=== PATIENT | female | born 1965 | race Hispanic/Latino ===

== ENCOUNTER 2021-04-03 01:28 | Observation (INO) | payer OTHER ==
[2021-04-03] MEDS ORDERED: ASPIRIN 325 MG TAB PO ONE (01:37)
[2021-04-03 02:06] LABS: Basophils # (Auto) 0.1 K/mm3 (0.0-0.1); Basophils % (Auto) 0.4 % (0.0-1.8); Eosinophils # (Auto) 0.3 K/mm3 (0.0-0.4); Eosinophils % (Auto) 2.3 % (0.0-4.3); Hematocrit 37.7 % (30.3-42.9); Hemoglobin 12.6 gm/dl (10.1-14.3); Lymphocytes # (Auto) 2.6 K/mm3 (1.2-5.4); Lymphocytes % (Auto) 20.5 % (13.4-35.0); Mean Corpuscular HGB Conc 34 % (30-34); Mean Corpuscular Volume 80 fl (79-97); Monocytes # (Auto) 0.5 K/mm3 (0.0-0.8); Monocytes % (Auto) 4.3 % (0.0-7.3); Platelet Count 363 K/mm3 (140-440); Red Blood Count 4.71 M/mm3 (3.65-5.03); Red Cell Distribution Width 14.3 % (13.2-15.2)
--- NOTE | 2021-04-03 02:13 | Emergency Department Report ---
ED Chest Pain HPI - General Chief Complaint: Chest Pain Stated Complaint: CHEST PAIN Time Seen by Provider: 04/03/21 01:45 Source: patient, EMS Mode of arrival: Stretcher Limitations: Other - History of Present Illness Initial Comments: 55-year-old female with no known past medical history presents complaining of acute onset of right-sided chest pain and shortness of breath. The patient states that she was sitting watching TV approximately 1.5 hours prior to arrival when she began to have pain in the right side of her chest which she describes as a tightness. The pain is 6 out of 10 in severity. She says her pain gets significantly worse during breaths. She feels short of breath and at the time the symptoms started was very diaphoretic. She reports after arrival to the emergency department her symptoms have somewhat improved but have not gone away. She has never had this before. The pain is not radiating to her arms or jaw. She denies any associated vision change, headache, neck pain, back pain, abdominal pain, nausea/vomiting, leg pain, leg swelling, or any other complaints. She denies any recent surgery, travel, or prolonged immobilization. - Related Data Allergies Allergy/AdvReac Type Severity Reaction Status Date / Time No Known Allergies Allergy Verified 04/03/21 01:46 Heart Score - HEART Score History: Moderately suspicious EKG: Normal Age: 45-65 Risk factors: No known risk factors Troponin: < normal limit HEART Score: 2 - EKG Read Time Time EKG Completed: 01:46 EKG Read Time: 01:50 ED Review of Systems ROS: Stated complaint: CHEST PAIN Other details as noted in HPI Constitutional: denies: chills, fever Eyes: denies: eye pain, vision change ENT: denies: throat pain, congestion Respiratory: shortness of breath. denies: cough Cardiovascular: chest pain. denies: palpitations, edema, syncope Gastrointestinal: denies: abdominal pain, nausea, vomiting Genitourinary: denies: dysuria, frequency Musculoskeletal: denies: back pain, joint swelling Skin: denies: rash Neurological: denies: headache, weakness, numbness ED Past Medical Hx - Past Medical History Previous Medical History?: No - Surgical History Past Surgical History?: No - Social History Smoking Status: Current Every Day Smoker Substance Use Type: None ED Physical Exam - General Limitations: Other - Other Other exam information: GENERAL: Well developed and well nourished. No acute distress HEENT: Normocephalic. No obvious signs of trauma. Dry mucous membranes EYES: Extraocular movements are intact. Pupils are equal round and reactive to light bilaterally NECK: Supple. Trachea is midline. LUNGS: Nonlabored breathing. Equal chest rise bilaterally. Clear to auscultation bilaterally. HEART/CARDIOVASCULAR: Regular rate and rhythm. No murmurs or rubs. VASCULAR: Cap refill < 2 seconds ABDOMEN: Abdomen is soft and nondistended. There is no significant tenderness, guarding or rebound. SKIN: Skin is warm and dry NEURO: Patient is awake, alert, and oriented. manager intelligence II-XII grossly intact. No focal deficits. Normal speech. MUSCULOSKELETAL: No obvious deformities. No significant tenderness. Normal ROM throughout. . ED Course Vital Signs 04/03/21 04/03/21 04/03/21 01:44 01:50 03:13 Temperature 97.9 F Pulse Rate 105 H 110 H 104 H Respiratory 16 Rate Blood Pressure 125/83 Blood Pressure 152/86 [Left] O2 Sat by Pulse 99 Oximetry 04/03/21 04/03/21 03:27 03:36 Temperature Pulse Rate 104 H 101 H Respiratory 19 Rate Blood Pressure 134/65 136/73 Blood Pressure 136/76 [Left] O2 Sat by Pulse 99 Oximetry GANESH score - Ganesh Score Age > 65: (0) No Aspirin use within the Past 7 Days: (0) No 3 or more CAD Risk Factors: (0) No 2 or more Angina events in past 24 hrs: (0) No Known CAD with more than 50% Stenosis: (0) No Elevated Cardiac Markers: (0) No ST Deviation Greater than 0.5mm: (0) No GANESH Score: 0 ED Medical Decision Making - Lab Data Result diagrams: 04/03/21 06:04 04/03/21 01:53 Lab Results 04/03/21 04/03/21 04/03/21 Range/Units 01:53 01:53 01:53 WBC 12.7 H (4.5-11.0) K/mm3 RBC 4.71 (3.65-5.03) M/mm3 Hgb 12.6 (10.1-14.3) gm/dl Hct 37.7 (30.3-42.9) % MCV 80 (79-97) fl MCH 27 L (28-32) pg MCHC 34 (30-34) % RDW 14.3 (13.2-15.2) % Plt Count 363 (140-440) K/mm3 Lymph % (Auto) 20.5 (13.4-35.0) % Kendall % (Auto) 4.3 (0.0-7.3) % Eos % (Auto) 2.3 (0.0-4.3) % Baso % (Auto) 0.4 (0.0-1.8) % Lymph # (Auto) 2.6 (1.2-5.4) K/mm3 Kendall # (Auto) 0.5 (0.0-0.8) K/mm3 Eos # (Auto) 0.3 (0.0-0.4) K/mm3 Baso # (Auto) 0.1 (0.0-0.1) K/mm3 Seg Neutrophils % 72.5 H (40.0-70.0) % Seg Neutrophils # 9.2 H (1.8-7.7) K/mm3 D-Dimer 135.00 (0-234) ng/mlDDU Sodium 141 (137-145) mmol/L Potassium 3.6 (3.6-5.0) mmol/L Chloride 102.6 (98-107) mmol/L Carbon Dioxide 29 (22-30) mmol/L Anion Gap 13 mmol/L BUN 17 (7-17) mg/dL Creatinine 0.9 (0.6-1.2) mg/dL Estimated GFR > 60 ml/min BUN/Creatinine Ratio 19 % Glucose 112 H (65-100) mg/dL Calcium 8.9 (8.4-10.2) mg/dL Total Bilirubin < 0.20 (0.1-1.2) mg/dL AST 17 (5-40) units/L ALT 17 (7-56) units/L Alkaline Phosphatase 125 (35-129) units/L Troponin T < 0.010 (0.00-0.029) ng/mL Total Protein 7.0 (6.3-8.2) g/dL Albumin 4.5 (3.9-5) g/dL Albumin/Globulin Ratio 1.8 % HCG, Qual (Negative) 04/03/21 Range/Units 01:53 WBC (4.5-11.0) K/mm3 RBC (3.65-5.03) M/mm3 Hgb (10.1-14.3) gm/dl Hct (30.3-42.9) % MCV (79-97) fl MCH (28-32) pg MCHC (30-34) % RDW (13.2-15.2) % Plt Count (140-440) K/mm3 Lymph % (Auto) (13.4-35.0) % Kendall % (Auto) (0.0-7.3) % Eos % (Auto) (0.0-4.3) % Baso % (Auto) (0.0-1.8) % Lymph # (Auto) (1.2-5.4) K/mm3 Kendall # (Auto) (0.0-0.8) K/mm3 Eos # (Auto) (0.0-0.4) K/mm3 Baso # (Auto) (0.0-0.1) K/mm3 Seg Neutrophils % (40.0-70.0) % Seg Neutrophils # (1.8-7.7) K/mm3 D-Dimer (0-234) ng/mlDDU Sodium (137-145) mmol/L Potassium (3.6-5.0) mmol/L Chloride (98-107) mmol/L Carbon Dioxide (22-30) mmol/L Anion Gap mmol/L BUN (7-17) mg/dL Creatinine (0.6-1.2) mg/dL Estimated GFR ml/min BUN/Creatinine Ratio % Glucose (65-100) mg/dL Calcium (8.4-10.2) mg/dL Total Bilirubin (0.1-1.2) mg/dL AST (5-40) units/L ALT (7-56) units/L Alkaline Phosphatase (35-129) units/L Troponin T (0.00-0.029) ng/mL Total Protein (6.3-8.2) g/dL Albumin (3.9-5) g/dL Albumin/Globulin Ratio % HCG, Qual Negative (Negative) - EKG Data -: EKG Interpreted by Mt - EKG Data 04/03/21 03:13 Sinus tachycardia. Normal axis. Normal intervals. No ectopy. No significant ST segment or T wave abnormalities. - Radiology Data CHEST 1 VIEW, 04/03/2021 1:37 AM CLINICAL INFORMATION/INDICATION: Chest pain COMPARISON: None. FINDINGS: SUPPORT DEVICES: None. HEART: The cardiac silhouette is normal in size. LUNGS/PLEURA: The lungs are clear of focal airspace disease or significant pleural effusion. ADDITIONAL FINDINGS: No additional acute findings. IMPRESSION: 1. No evidence of acute cardiopulmonary process. Signer Name: Juliann Nolasco MD Signed: 04/03/2021 1:45 AM Workstation Name: [id number] - Medical Decision Making 55-year-old female with no known past medical history presents complaining of new onset of pleuritic chest pain at rest. It started 1.5 hours prior to arrival while she was watching TV. She states that she feels short of breath and that deep breaths make the pain much worse. She has never had this before. Initial assessment, she is afebrile and with normal vitals with the exception of elevated blood pressure and heart rate in the 110s. Denies any recent travel , surgery, or prolonged immobilization. On physical exam she is noted to be tachycardic but with regular rhythm. Lungs are clear to auscultation. There is no significant lower extremity swelling. Her Wells PE score is 1.5, corresponding to low risk. Therefore we will order full set of labs including troponin and D-dimer as well as chest x-ray. We will give full-strength aspirin and reassess. Labs have resulted and reveal white blood cell count of 12.7. There is no significant anemia. There is no significant electrolyte abnormality. Kidney function is normal. Troponin is negative. D-dimer is negative. Chest x-ray shows no acute abnormalities. On repeat assessment at 3 AM, the patient reports that her chest pain/shortness of breath are unchanged. I discussed the results of the labs and imaging with the patient and explained the need for trending of cardiac enzymes given that this may represent new onset angina. Will give sublingual nitro glycerin and admit to the hospitalist for further work-up/management. The patient expressed understanding and agreement with this plan of care. Critical care attestation.: If time is entered above; I have spent that time in minutes in the direct care of this critically ill patient, excluding procedure time. ED Disposition Clinical Impression: Unstable angina Disposition: OP ADMIT IP TO THIS HOSP Is pt being admited?: Yes Condition: Stable
[2021-04-03] MEDS ORDERED: SODIUM CHLORIDE 0.9% 1000 ML 1,000 ML IV ONE (02:26)
[2021-04-03 02:29] LABS: Alanine Aminotransferase 17 units/L (7-56); Albumin 4.5 g/dL (3.9-5); BUN/Creatinine Ratio 19; Blood Urea Nitrogen 17 mg/dL (7-17); Calcium 8.9 mg/dL (8.4-10.2); Hemolysis Index 3
--- NOTE | 2021-04-03 02:50 | XRay Report ---
CHEST 1 VIEW, 04/03/2021 1:37 AM CLINICAL INFORMATION/INDICATION: Chest pain COMPARISON: None. FINDINGS: SUPPORT DEVICES: None. HEART: The cardiac silhouette is normal in size. LUNGS/PLEURA: The lungs are clear of focal airspace disease or significant pleural effusion. ADDITIONAL FINDINGS: No additional acute findings. IMPRESSION: 1. No evidence of acute cardiopulmonary process. Signer Name: Juliann Nolasco MD Signed: 04/03/2021 2:45 AM Workstation Name: [id number]
[2021-04-03] MEDS: NITROGLYCERIN 0.4 MG TAB SUBL SL PRN ×3 (03:13→03:36)
[2021-04-03] MEDS ORDERED: ACETAMINOPHEN 325 MG TAB PO PRN ×3 (03:52→04:01)
[2021-04-03] MEDS ORDERED: MORPHINE 2 MG/1 ML INJ IV PRN ×2 (03:53→04:01)
[2021-04-03] MEDS ORDERED: ALBUTEROL 2.5 MG/3 ML NEBU IH PRN (04:01)
[2021-04-03] MEDS ORDERED: traMADol 50 MG TAB PO PRN (04:01)
[2021-04-03] MEDS ORDERED: ONDANSETRON 4 MG/2 ML INJ IV PRN (04:01)
[2021-04-03] MEDS ORDERED: NITROGLYCERIN 0.4 MG TAB SUBL SL PRN (04:01)
[2021-04-03] MEDS ORDERED: hydrALAZINE 20 MG/1 ML INJ IV PRN (04:04)
--- NOTE | 2021-04-03 04:08 | History and Physical Report ---
History of Present Illness Date of examination: 04/03/21 Date of admission: 04/03/21 03:08 Chief complaint: Chest pain History of present illness: 55-year-old female with no known past medical history presents complaining of acute onset of right-sided chest pain and shortness of breath for the last couple of hours. The patient was sitting watching TV approximately 1.5 hours prior to arrival when she began to have pain in the right side of her chest which she describes as a tightness which is 6/10, does not radiate to her arms or jaw she says her pain gets significantly worse during breaths. She feels short of breath and at the time the symptoms started was very diaphoretic. She reports after arrival to the emergency department her symptoms have somewhat improved but have not gone away. She has never had this before. She denies any associated vision change, headache, neck pain, back pain, abdominal pain, nausea/vomiting, leg pain, leg swelling, or any other complaints. In the emergency room initial cardiac enzyme is negative troponin is 0.010 Medications and Allergies Allergies Allergy/AdvReac Type Severity Reaction Status Date / Time No Known Allergies Allergy Verified 04/03/21 01:46 Active Meds: Active Medications Acetaminophen (Acetaminophen 325 Mg Tab) 650 mg PO Q6H PRN PRN Reason: Pain, Mild (1-3) Last Admin: 04/03/21 03:56 Dose: 650 mg Documented by: Morphine Sulfate (Morphine 2 Mg/1 Ml Inj) 2 mg IV Q4H PRN PRN Reason: Pain, Moderate (4-6) Nitroglycerin (Nitroglycerin 0.4 Mg Tab Subl) 0.4 mg SL .Q5MIN PRN PRN Reason: Chest Pain Last Admin: 04/03/21 03:36 Dose: 0.4 mg Documented by: Review of Systems Cardiovascular: chest pain, shortness of breath, dyspnea on exertion Respiratory: shortness of breath, dyspnea on exertion Exam - Constitutional Vitals: Temp Pulse Resp BP Pulse Ox 97.9 F 101 H 19 136/76 99 04/03/21 01:44 04/03/21 03:36 04/03/21 03:36 04/03/21 03:36 04/03/21 03:36 General appearance: Present: no acute distress, well-nourished - EENT Eyes: Present: PERRL ENT: hearing intact, clear oral mucosa - Neck Neck: Present: supple, normal ROM - Respiratory Respiratory effort: normal Respiratory: bilateral: diminished - Cardiovascular Heart Sounds: Present: S1 & S2. Absent: rub, click - Extremities Extremities: pulses symmetrical, No edema Peripheral Pulses: within normal limits - Abdominal General gastrointestinal: Present: soft, non-tender, non-distended, normal bowel sounds Female genitourinary: Present: normal - Integumentary Integumentary: Present: clear, warm, dry - Musculoskeletal Musculoskeletal: gait normal, strength equal bilaterally - Psychiatric Psychiatric: appropriate mood/affect, intact judgment & insight - Neurologic Neurologic: CNII-XII intact, moves all extremities HEART Score - HEART Score EKG: Normal Age: 45-65 Risk factors: No known risk factors Troponin: Troponin T < 0.010 ng/mL (0.00-0.029) 04/03/21 01:53 Troponin: < normal limit Results - Labs CBC & Chem 7: 04/03/21 01:53 04/03/21 01:53 Labs: Laboratory Last Values WBC 12.7 K/mm3 (4.5-11.0) H 04/03/21 01:53 RBC 4.71 M/mm3 (3.65-5.03) 04/03/21 01:53 Hgb 12.6 gm/dl (10.1-14.3) 04/03/21 01:53 Hct 37.7 % (30.3-42.9) 04/03/21 01:53 MCV 80 fl (79-97) 04/03/21 01:53 MCH 27 pg (28-32) L 04/03/21 01:53 MCHC 34 % (30-34) 04/03/21 01:53 RDW 14.3 % (13.2-15.2) 04/03/21 01:53 Plt Count 363 K/mm3 (140-440) 04/03/21 01:53 Lymph % (Auto) 20.5 % (13.4-35.0) 04/03/21 01:53 Edmunds % (Auto) 4.3 % (0.0-7.3) 04/03/21 01:53 Eos % (Auto) 2.3 % (0.0-4.3) 04/03/21 01:53 Baso % (Auto) 0.4 % (0.0-1.8) 04/03/21 01:53 Lymph # (Auto) 2.6 K/mm3 (1.2-5.4) 04/03/21 01:53 Edmunds # (Auto) 0.5 K/mm3 (0.0-0.8) 04/03/21 01:53 Eos # (Auto) 0.3 K/mm3 (0.0-0.4) 04/03/21 01:53 Baso # (Auto) 0.1 K/mm3 (0.0-0.1) 04/03/21 01:53 Seg Neutrophils % 72.5 % (40.0-70.0) H 04/03/21 01:53 Seg Neutrophils # 9.2 K/mm3 (1.8-7.7) H 04/03/21 01:53 D-Dimer 135.00 ng/mlDDU (0-234) 04/03/21 01:53 Sodium 141 mmol/L (137-145) 04/03/21 01:53 Potassium 3.6 mmol/L (3.6-5.0) 04/03/21 01:53 Chloride 102.6 mmol/L (98-107) 04/03/21 01:53 Carbon Dioxide 29 mmol/L (22-30) 04/03/21 01:53 Anion Gap 13 mmol/L 04/03/21 01:53 BUN 17 mg/dL (7-17) 04/03/21 01:53 Creatinine 0.9 mg/dL (0.6-1.2) 04/03/21 01:53 Estimated GFR > 60 ml/min 04/03/21 01:53 BUN/Creatinine Ratio 19 % 04/03/21 01:53 Glucose 112 mg/dL (65-100) H 04/03/21 01:53 Calcium 8.9 mg/dL (8.4-10.2) 04/03/21 01:53 Total Bilirubin < 0.20 mg/dL (0.1-1.2) 04/03/21 01:53 AST 17 units/L (5-40) 04/03/21 01:53 ALT 17 units/L (7-56) 04/03/21 01:53 Alkaline Phosphatase 125 units/L (35-129) 04/03/21 01:53 Troponin T < 0.010 ng/mL (0.00-0.029) 04/03/21 01:53 Total Protein 7.0 g/dL (6.3-8.2) 04/03/21 01:53 Albumin 4.5 g/dL (3.9-5) 04/03/21 01:53 Albumin/Globulin Ratio 1.8 % 04/03/21 01:53 HCG, Qual Negative (Negative) 04/03/21 01:53 - Imaging and Cardiology Chest x-ray: report reviewed Assessment and Plan VTE prophylaxis?: Chemical Plan of care discussed with patient/family: Yes - Patient Problems (1) Acute coronary syndrome Current Visit: Yes Status: Acute Plan to address problem: Admit the patient to the cardiac telemetry. Aspirin 325 mg p.o. daily. Lipitor 40 mg p.o. daily. Nitroglycerin as needed we will do the serial cardiac enzymes we also do a Lexiscan. Consult cardiology in the morning if needed. Heparin 5000 units subcu every 8 hours (2) Shortness of breath Current Visit: Yes Status: Acute Plan to address problem: Oxygen by nasal cannula 3 L/min. DuoNeb by nebulizer every 4 hours as needed. Spencer troll 2.5 mg by nebulizer every 4 hours as needed. We will monitor the patient closely (3) DVT prophylaxis Current Visit: Yes Status: Acute Plan to address problem: Heparin 5000 units subcu every 8 hours for DVT prophylaxis. Pepcid 20 mg p.o. twice daily for GI prophylaxis. Patient is a full code
[2021-04-03] MEDS ORDERED: D5W/0.45% NACL 1,000 ML IV SCH (05:00)
[2021-04-03] MEDS ORDERED: HEPARIN 5,000 UNIT/1 ML VIAL SUB-Q SCH (06:00)
[2021-04-03 06:40] LABS: Basophils # (Auto) 0.1 K/mm3 (0.0-0.1); Basophils % (Auto) 0.4 % (0.0-1.8); Eosinophils # (Auto) 0.2 K/mm3 (0.0-0.4); Eosinophils % (Auto) 2.1 % (0.0-4.3); Hematocrit 34.8 % (30.3-42.9); Hemoglobin 11.8 gm/dl (10.1-14.3); Lymphocytes # (Auto) 2.7 K/mm3 (1.2-5.4); Mean Corpuscular HGB Conc 34 % (30-34); Mean Corpuscular Volume 82 fl (79-97); Monocytes # (Auto) 0.6 K/mm3 (0.0-0.8); Monocytes % (Auto) 4.8 % (0.0-7.3); Platelet Count 302 K/mm3 (140-440); Red Blood Count 4.22 M/mm3 (3.65-5.03); Red Cell Distribution Width 14.4 % (13.2-15.2)
[2021-04-03 07:37] LABS: Blood Urea Nitrogen 17 mg/dL (7-17); Calcium 8.7 mg/dL (8.4-10.2); Hemolysis Index 20
[2021-04-03 07:38] LABS: BUN/Creatinine Ratio 24
[2021-04-03 07:42] LABS: Chol/HDL Ratio 4.12 %
[2021-04-03] MEDS ORDERED: REGADENOSON 0.4 MG/5 ML INJ IV ONE ×2 (08:41→08:45)
[2021-04-03 09:58] VITALS: BP 125/76
[2021-04-03] MEDS ORDERED: FAMOTIDINE 20 MG TAB PO SCH (10:00)
--- NOTE | 2021-04-03 13:06 | Discharge Summary ---
Providers - Providers Date of Admission: 04/03/21 03:08 Date of discharge: 04/03/21 Attending physician: FELIBERTO SALGADO 04/03/21 Consult to Cardiac Rehabilitation [CONS] Routine Reason For Exam: Phase I 04/03/21 10:19 Consult to Physician [CONS] Routine Comment: Consulting Provider: NIRAV LOVE Physician Instructions: Reason For Exam: chest pain Primary care physician: [employer] Hospitalization Condition: Fair Hospital course: 55-year-old female with no known past medical history presents complaining of acute onset of right-sided chest pain and shortness of breath for the last couple of hours. The patient was sitting watching TV approximately 1.5 hours prior to arrival when she began to have pain in the right side of her chest which she describes as a tightness which is 6/10, does not radiate to her arms or jaw she says her pain gets significantly worse during breaths. She feels short of breath and at the time the symptoms started was very diaphoretic. She reports after arrival to the emergency department her symptoms have somewhat improved but have not gone away. She has never had this before. She denies any associated vision change, headache, neck pain, back pain, abdominal pain, nausea/vomiting, leg pain, leg swelling, or any other complaints. She was admitted, evaluated by Cardiology. Stress test was negative for ischemia. Patient therefore discharged home. Chest pain due to GERD. Disposition: TO HOME OR SELFCARE Final Discharge Diagnosis (Prints w/discharge instructions): 1.Chest pain due to GERD. 2.GERD - Discharge Diagnoses (1) Chest pain Status: Resolved Comment: due to GERD (2) GERD (gastroesophageal reflux disease) Status: Acute Core Measure Documentation - Palliative Care Palliative Care/ Comfort Measures: Not Applicable - Core Measures Any of the following diagnoses?: none Exam - Constitutional Vitals: Temp Pulse Resp BP Pulse Ox 98.0 F 70 19 125/76 99 04/03/21 06:03 04/03/21 06:03 04/03/21 06:03 04/03/21 09:25 04/03/21 06:03 Plan Activity: advance as tolerated Diet: low fat, low cholesterol, low salt Special Instructions: other (Follow up with Dr Alba, [facility] within 1 to 2 weeks of discharge. #[phone]) Plan of Treatment: 1.Follow up with PCP in 1 week. 2.Follow up with Dr. Alba, Cardiology in 1-2 weeks #[phone] 3.Continue Omeprazole from home Follow up with: PRIMARY CAREMD [Primary Care Provider] - 3-5 Days
--- NOTE | 2021-04-03 13:14 | Consultation ---
History of Present Illness Consult date: 04/03/21 Requesting physician: FELIBERTO SALGADO Consult reason: chest pain History of present illness: 80 this patient is a 55-year-old female with no significant medical history. She is previously known to our practice. She is not followed by cardiology, and is followed by Dr. Bella PCP. Patient presents to [facility] via private vehicle after episode of chest pain amd shortness of breath lasting approximately 1 to 2 hours. Patient describes chest pain as 6 out of 10, sharp and right-sided, nonradiating and worse with deep inspiration. Not exacerbated by exertion and not relieved with rest. Chest pain resolved spontaneously in the emergency room. Initial twelve-lead ECG showed sinus tach [address] segment elevation. D-dimer was normal. Troponins are negative x3. Echocardiogram shows normal EF with no cardiomyopathy. Lexiscan stress test this a.m. was negative for reversible ischemia. At time of interview patient is chest pain-free without any complaints. She currently denies any weakness, dizziness, shortness of breath, chest pain, N/V/D, abdominal pain, recent illness or known exposures. She does use tobacco reporting half pack per day x20 years, no other drugs or alcohol. She reports normal unimpaired ADLs. She takes no daily medications save for intermittent multivitamins. Past History Past Medical History: other (Unknown autoimmune disease, see HPI) Medications and Allergies Allergies Allergy/AdvReac Type Severity Reaction Status Date / Time No Known Allergies Allergy Verified 04/03/21 01:46 Home Medications Medication Instructions Recorded Confirmed Last Taken Type Famotidine [Pepcid] 20 mg PO BID #60 tablet 04/03/21 Unknown Rx Active Meds: Active Medications Acetaminophen (Acetaminophen 325 Mg Tab) 650 mg PO Q4H PRN PRN Reason: Pain MILD(1-3)/Fever >100.5/DOS SANTOS Last Admin: 04/03/21 05:01 Dose: 650 mg Documented by: Albuterol (Albuterol 2.5 Mg/3 Ml Nebu) 2.5 mg IH Q4HRT PRN PRN Reason: Shortness Of Breath Aspirin (Aspirin Ec 325 Mg Tab) 325 mg PO QDAY NIKO Atorvastatin Calcium (Atorvastatin 40 Mg Tab) 40 mg PO QHS NIKO Famotidine (Famotidine 20 Mg Tab) 20 mg PO BID NIKO Heparin Sodium (Porcine) (Heparin 5,000 Unit/1 Ml Vial) 5,000 unit SUB-Q Q8HR [facility] Last Admin: 04/03/21 05:00 Dose: 5,000 unit Documented by: Hydralazine HCl (Hydralazine 20 Mg/1 Ml Inj) 10 mg IV Q6H PRN PRN Reason: SBP >/=160; DBP >/100 Dextrose/Sodium Chloride (D5/0.45ns) 1,000 mls @ 100 mls/hr IV DIRECT [facility] Last Admin: 04/03/21 05:00 Dose: 100 mls/hr Documented by: Morphine Sulfate (Morphine 2 Mg/1 Ml Inj) 2 mg IV Q4H PRN PRN Reason: Pain, Moderate (4-6) Nitroglycerin (Nitroglycerin 0.4 Mg Tab Subl) 0.4 mg SL Q5M PRN PRN Reason: Chest Pain Ondansetron HCl (Ondansetron 4 Mg/2 Ml Inj) 4 mg IV Q8H PRN PRN Reason: Nausea And Vomiting Sodium Chloride (Sodium Chloride 0.9% 10 Ml Flush Syringe) 10 ml IV BID NIKO Sodium Chloride (Sodium Chloride 0.9% 10 Ml Flush Syringe) 10 ml IV PRN PRN PRN Reason: LINE FLUSH Tramadol HCl (Tramadol 50 Mg Tab) 50 mg PO Q6H PRN PRN Reason: Pain, Moderate (4-6) Review of Systems Constitutional: no weight loss, no weight gain, no fever, no chills, no sweats, no night sweats, no fatigue, no weakness, no malaise, no lethargy Ears, nose, mouth and throat: no ear pain, no ear discharge, no nose pain, no nasal congestion, no nasal discharge Cardiovascular: chest pain, shortness of breath, no orthopnea, no palpitations, no rapid/irregular heart beat, no edema, no syncope, no lightheadedness, no dyspnea on exertion, no paroxysmal nocturnal dyspnea, no claudication, no phlebitis, no high blood pressure, no leg edema, no decreased exercise tolerance Respiratory: shortness of breath, pain on inspiration, no cough, no hemoptysis, no dyspnea on exertion, no congestion, no wheezing, no pleurisy, no pain, no home oxygen Gastrointestinal: no abdominal pain, no nausea, no vomiting, no diarrhea Musculoskeletal: no neck stiffness, no neck pain, no shooting arm pain, no arm numbness/tingling, no low back pain, no shooting leg pain Integumentary: no rash, no pruritis, no redness, no sores, no wounds Neurological: no head injury, no paralysis, no weakness, no parathesias, no numbness, no tingling, no seizures, no syncope Psychiatric: no anxiety Endocrine: no cold intolerance, no heat intolerance Hematologic/Lymphatic: no easy bruising, no easy bleeding Allergic/Immunologic: no urticaria Physical Examination Last Vital Signs Temp 98.0 F 04/03/21 06:03 Pulse 70 04/03/21 06:03 Resp 19 04/03/21 06:03 BP 125/76 04/03/21 09:25 Pulse Ox 99 04/03/21 06:03 General appearance: no acute distress HEENT: Positive: PERRL, Normocephaly, Mucus Membranes Moist Neck: Positive: neck supple, trachea midline Cardiac: Positive: Reg Rate and Rhythm, S1/S2 Lungs: Positive: Normal Exam, Normal Breath Sounds Neuro: Positive: Grossly Intact Abdomen: Positive: Unremarkable, Soft Skin: Negative: Rash, Wound Musculoskeletal: No Pain Extremities: Absent: upper extr. pulses, lower extr. pulses, edema Results 04/03/21 06:04 04/03/21 06:04 Cardiac Enzymes 04/03/21 Range/Units 01:53 AST 17 (5-40) units/L Lipids 04/03/21 Range/Units 06:04 Triglycerides 147 (2-149) mg/dL Cholesterol 169 (50-199) mg/dL HDL Cholesterol 41 (40-59) mg/dL Cholesterol/HDL Ratio 4.12 % CBC 04/03/21 04/03/21 Range/Units 01:53 06:04 WBC 12.7 H 11.7 H (4.5-11.0) K/mm3 RBC 4.71 4.22 (3.65-5.03) M/mm3 Hgb 12.6 11.8 (10.1-14.3) gm/dl Hct 37.7 34.8 (30.3-42.9) % Plt Count 363 302 (140-440) K/mm3 Lymph # (Auto) 2.6 2.7 (1.2-5.4) K/mm3 Mccreary # (Auto) 0.5 0.6 (0.0-0.8) K/mm3 Eos # (Auto) 0.3 0.2 (0.0-0.4) K/mm3 Baso # (Auto) 0.1 0.1 (0.0-0.1) K/mm3 Comprehensive Metabolic Panel 04/03/21 04/03/21 Range/Units 01:53 06:04 Sodium 141 141 (137-145) mmol/L Potassium 3.6 3.6 (3.6-5.0) mmol/L Chloride 102.6 106.9 (98-107) mmol/L Carbon Dioxide 29 21 L D (22-30) mmol/L BUN 17 17 (7-17) mg/dL Creatinine 0.9 0.7 (0.6-1.2) mg/dL Glucose 112 H 94 (65-100) mg/dL Calcium 8.9 8.7 (8.4-10.2) mg/dL AST 17 (5-40) units/L ALT 17 (7-56) units/L Alkaline Phosphatase 125 (35-129) units/L Total Protein 7.0 (6.3-8.2) g/dL Albumin 4.5 (3.9-5) g/dL - Imaging and Cardiology Echo: report reviewed EKG: report reviewed EKG interpretations - Telemetry EKG Rhythm: Sinus Rhythm - EKG Sinus rhythms and dysrhythmias: sinus tachycardia Assessment and Plan Chest pain * Patient is currently chest pain-free with no cardiac complaints. Troponins were negative x2. AMI has been ruled out. * Telemetry reviewed: Sinus rhythm in the 80s with no events. * Echocardiogram reviewed showing no cardiomyopathy and normal ejection fraction (detailed read pending) * Lexiscan MPI stress test (04/03/2021): Negative for reversible ischemia Tobacco use * Cessation encouraged DVT prophylaxis * Heparin SQ Patient is currently stable cardiac status. Patient may discharge from cardiac standpoint. Will follow on as-needed basis. Patient should follow-up with Dr Alba, [facility] heart specialists at our [place] location on 04/30/2021 at 2:15 PM. #[id number] This patient was seen in conjunction with Dr Alba who agrees with this asse ssment and plan of care - Patient Problems (1) Chest pain Current Visit: Yes Status: Resolved (2) Tobacco use Current Visit: Yes Status: Chronic (3) DVT prophylaxis Current Visit: Yes Status: Acute (4) Shortness of breath Current Visit: Yes Status: Resolved
--- NOTE | 2021-04-03 19:45 | Electrocardiograph Report ---
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
--- NOTE | 2021-04-03 19:50 | Electrocardiograph Report ---
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
--- NOTE | 2021-04-03 19:53 | Electrocardiograph Report ---
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
[2021-04-04] MEDS ORDERED: ASPIRIN EC 325 MG TAB PO SCH (10:00)
--- NOTE | 2021-04-06 17:20 | Nuclear Medicine Report ---
APPROVED REPORT Exam: Nuclear Stress Test Indication: Chest pain BMI: 0 Stress Test Details Stress Test: Pharmacologic stress testing performed using 0.4 mg of regadenoson per 5 mL given IV over 10 seconds. HR Resting HR: 70 bpm Max HR Achieved: 109 bpm Max Heart Rate (APMHR): 167 bpm Target HR (85% APMHR): 141 bpm % of APMHR: 65 Recovery HR: 92 bpm HR response to stress: Normal HR response to stress BP Resting BP: 114/57 mmHg Max BP: 137/69 mmHg Recovery BP: 121/62 mmHg BP response to stress: Normal blood pressure response to stress. ECG Resting ECG: Sinus Rhythm Stress ECG: Sinus Tachycardia Recovery ECG: Sinus Rhythm Recovery ST Change: None Recovery Arrhythmia: None Clinical Reason for Termination: Maximal effort Stress Symptoms: None NM EXAM: Myocardial Perfusion REST/STRESS Imaging Protocol: Rest Tc-99m/Stress Tc-99m 1 day Resting Data Rest SPECT myocardial perfusion imaging was performed in supine position 45 minutes following the intravenous injection of 10 mCi of Tc-99m Myoview. Time of rest injection: 0700 Pharmacologic Stress Pharmacologic stress test was performed by injecting Regadenoson 0.4 mg IV push followed by the intravenous injection of 28 mCi of Tc-99m Myoview. Time of stress injection: 0910 Gated Stress SPECT was performed 30 minutes after stress injection. Study Quality Study: Excellent Study Data TID = 0.97. Perfusion Wall Motion Normal wall motion,with calculated EF of 85%,which probably is overestimation. Nuclear Conclusion ECG Findings: negative for ischemia Clinical Findings: negative for ischemia Nuclear Findings: negative for ischemia Exercise Capacity: not assessed Left Ventricular Function: normal Risk Study: low No evidence of ischemia noted alongwith normal wall motion and lV systolic function. Normal study. No scintigraphic evidence for myocardial ischemia or scar. No prior study available for comparison.
== END 2021-04-03 18:07 | disposition home or self-care (01) ==
LOC: ED 01:28 → 4A 03:08
PROVIDERS: ADMIT Hospitalist; ATTEND Internal Medicine
DX: I24.9 Acute ischemic heart disease, unspecified (principal); R06.02 Shortness of breath; F17.200 Nicotine dependence, unspecified, uncomplicated; Z79.82 Long term (current) use of aspirin
CPT/HCPCS: 36415; 71045; 78452; 80053; 80061; 84484; 84703; 85025; 85379; 93005; 93017; 93306; 96360; 96361; 96372; 99285; A9502; G0378; J1644; J2785; J7030; 80048; J7070